=== PATIENT | male | born 1975 | race Two or more races ===

== ENCOUNTER 2024-12-02 16:31 | Emergency (ER) | payer OTHER ==
[~2024-12-02] VITALS: Ht 177.8 cm; Wt 122.7 kg
[2024-12-02 16:35] VITALS: TEMP 98.1
[2024-12-02] MEDS ORDERED: ACET-66 PO (18:40)
[2024-12-02] MEDS ORDERED: HYDR25TA2 PO (18:40)
[2024-12-02] MEDS ORDERED: ASPI-1444 PO (18:40)
[2024-12-02 18:42] VITALS: BP 140/95; PULSE 105; RESP 18; O2SAT 97
== END 2024-12-02 18:44 | disposition home or self-care (01) ==
LOC: EMS 16:31
DX: I10 Essential (primary) hypertension (principal); R51.9 Headache, unspecified; F17.210 Nicotine dependence, cigarettes, uncomplicated; Z79.899 Other long term (current) drug therapy
CPT/HCPCS: 99283; Z7502